=== PATIENT | female | born 1940 | race Caucasian/White ===

== ENCOUNTER → 2017-01-27 | Outpatient (CLI) | payer MEDICARE, BC ==
[2013-12-01 13:52] VITALS: BP 169/74
[~2017-01-27] MED LIST: ANTIVERT 12.512.5 MG PO; ASPIRIN E.C. 8181 MG PO; CALCIUM1 CAP PO; KLOR-CON 1010 MEQ PO; ONDANSETRON4 M1 PO; SIMVASTATIN20 MG PO; SYNTHROID0.05 MG PO; TELMISARTAN PO; [UNRECOGNIZED DRUG - OTHER] PO
== END ==
LOC: MAMMO 08:37
DX: Z12.31 Encounter for screening mammogram for malignant neoplasm of breast (principal)
CPT/HCPCS: G0202

== ENCOUNTER → 2018-01-31 | Outpatient (CLI) | payer MEDICARE, BC ==
[2013-12-01 13:52] VITALS: BP 169/74
== END ==
LOC: MAMMO 07:50
DX: Z12.31 Encounter for screening mammogram for malignant neoplasm of breast (principal)

== ENCOUNTER → 2018-04-18 | Outpatient (CLI) | payer MEDICARE, BC ==
[2013-12-01 13:52] VITALS: BP 169/74
== END ==
LOC: RAD 13:00 → MAMMO 13:45 → RAD 13:45
DX: Z13.820 Encounter for screening for osteoporosis (principal); M85.88 Other specified disorders of bone density and structure, other site; M85.852 Other specified disorders of bone density and structure, left thigh; M85.851 Other specified disorders of bone density and structure, right thigh

== ENCOUNTER → 2019-01-30 | Outpatient (CLI) | payer MEDICARE, BC ==
[2013-12-01 13:52] VITALS: BP 169/74
== END ==
LOC: MAMMO 09:37
DX: Z12.31 Encounter for screening mammogram for malignant neoplasm of breast (principal)

== ENCOUNTER → 2020-02-05 | Outpatient (CLI) | payer MEDICARE, BC ==
[2013-12-01 13:52] VITALS: BP 169/74
== END ==
LOC: MAMMO 11:18
DX: Z12.31 Encounter for screening mammogram for malignant neoplasm of breast (principal)

== ENCOUNTER → 2021-02-03 | Outpatient (CLI) | payer MEDICARE, BC | LOC: MAMMO 01-27 07:45 | DX: Z12.31 Encounter for screening mammogram for malignant neoplasm of breast (principal) ==

== ENCOUNTER → 2022-03-11 | Outpatient (CLI) | payer MEDICARE, BC | LOC: VAS 07:44 | DX: J98.4 Other disorders of lung (principal) ==